=== PATIENT | female | born 2000 | race Caucasian/White ===

== ENCOUNTER 2022-06-28 16:48 | Emergency (ER) | payer OTHER ==
[~2022-06-28] VITALS: Ht 154.9 cm; Wt 59.4 kg
[2022-06-28 16:57] VITALS: BP 112/79
--- NOTE | 2022-06-28 17:02 | NUR ---
PT TAKEN TO LOBBY
--- NOTE | 2022-06-28 17:41 | NUR ---
PATIENT LEFT WITHOUT BEING SEEN BY DR. NDIAYE. NO FURTHER CARE PROVIDED FOR PATIENT.
--- NOTE | 2022-06-28 17:46 | NUR ---
PER RUSSEL IN ADMITTING, PT LEFT WITHOUT BEING SEEN AT 1741.
== END 2022-06-28 17:41 | disposition left against medical advice (07) ==
LOC: MED 16:48
DX: R42 Dizziness and giddiness (principal); R53.1 Weakness; R11.2 Nausea with vomiting, unspecified; Z53.21 Procedure and treatment not carried out due to patient leaving prior to being seen by health care provider